=== PATIENT | female | born 1965 | race Caucasian/White ===

== ENCOUNTER 2018-08-30 07:33 | Emergency (ER) | payer OTHER ==
[2018-08-30] MEDS ORDERED: NS 1,000 ML IV ONE ×2 (08:01→08:07)
[2018-08-30] MEDS ORDERED: PROPOFOL 200 MG/20 ML VIAL IVP ONE (08:06)
[2018-08-30 08:15] LABS: PLATELET COUNT 210 10^3/uL (150-400)
[2018-08-30] MEDS ORDERED: ONDANSETRON DISINTEGRATING 4 MG TAB PO PRN (08:48)
[2018-08-30] MEDS ORDERED: ONDANSETRON 4 MG/2 ML VIAL IVP PRN (08:48)
[2018-08-30] MEDS ORDERED: ACETAMINOPHEN 325 MG TAB PO PRN (08:48)
--- NOTE | 2018-08-30 08:58 | PDGENHP ---
History and Physical - Chief Complaint rapid hr, dizzy - History of Present Illness 52 yo active female with no past medical history presents to ED via EMS after she developed rapid HR during a spin class. She was doing intervals and began to feel nauseous and lightheaded. She felt palpitations and was lightheaded. She had no associated CP or SOB. She left the class and sat down against a wall. Her symptoms did not fransisca. EMS was called and she was found to be in presumed v tac. She was brought to the ED and received 2 shocks, ultimately converting to sinus rhythm. Currently she has a HR of 60 in sinus rhythm. She is a non-smoker. No h/o DM, htn or hyperlipidemia. No family h/o CAD. She notes poor sleep and increased stress recently. She generally exercises at a high level. She has never had this happen before, but does note her HR was excessively elevated during a skate ski session recently. She is currently CP free and feels fine. Cardiology has consulted in the ED and she will be admitted for further evaluation. History Information - Allergies/Home Medication List Allergies/Adverse Reactions: No Known Allergies Allergy (Verified 08/30/18 08:31) Home Medications: Ibuprofen [Motrin (*)] 200 mg PO DAILY PRN 08/30/18 [Last Taken Unknown] I have personally reviewed and updated: family history, medical history, social history, surgical history - Past Medical History no pertinent PMH - Surgical History Reports: no pertinent surgical hx - Family History Positive for: non-pertinent - Social History Smoking Status: Never smoked Alcohol Use: Rarely Drug Use: None Additional social history: , at bedside. Review of Systems Review of Systems: ROS: 10pt was reviewed & negative except for what was stated in HPI & below Physical Exam Physical Exam: Temp Pulse Resp BP Pulse Ox 60 16 95/69 L 100 08/30/18 08:12 08/30/18 08:12 08/30/18 08:12 08/30/18 08:12 Constitutional: no apparent distress Eyes: PERRL Ears, Nose, Mouth, Throat: moist mucous membranes Cardiovascular: regular rate and rhythym, no murmur, rub, or gallop Respiratory: no respiratory distress, clear to auscultation Gastrointestinal: normoactive bowel sounds, soft, non-tender abdomen Skin: warm Musculoskeletal: full muscle strength Neurologic: AAOx3 Psychiatric: interacting appropriately Lab Data & Imaging Review 08/30/18 07:50 08/30/18 07:50 WBC 6.25 10^3/uL (3.80-9.50) 08/30/18 07:50 RBC 5.22 10^6/uL (4.18-5.33) 08/30/18 07:50 Hgb 16.1 g/dL (12.6-16.3) 08/30/18 07:50 Hct 50.0 % (38.0-47.0) H 08/30/18 07:50 MCV 95.8 fL (81.5-99.8) 08/30/18 07:50 MCH 30.8 pg (27.9-34.1) 08/30/18 07:50 MCHC 32.2 g/dL (32.4-36.7) L 08/30/18 07:50 RDW 12.2 % (11.5-15.2) 08/30/18 07:50 Plt Count 210 10^3/uL (150-400) 08/30/18 07:50 MPV 12.2 fL (8.7-11.7) H 08/30/18 07:50 Neut % (Auto) 49.1 % (39.3-74.2) 08/30/18 07:50 Lymph % (Auto) 38.2 % (15.0-45.0) 08/30/18 07:50 [place] % (Auto) 7.0 % (4.5-13.0) 08/30/18 07:50 Eos % (Auto) 4.5 % (0.6-7.6) 08/30/18 07:50 Baso % (Auto) 1.0 % (0.3-1.7) 08/30/18 07:50 Nucleat RBC Rel Count 0.0 % (0.0-0.2) 08/30/18 07:50 Absolute Neuts (auto) 3.07 10^3/uL (1.70-6.50) 08/30/18 07:50 Absolute Lymphs (auto) 2.39 10^3/uL (1.00-3.00) 08/30/18 07:50 Absolute Monos (auto) 0.44 10^3/uL (0.30-0.80) 08/30/18 07:50 Absolute Eos (auto) 0.28 10^3/uL (0.03-0.40) 08/30/18 07:50 Absolute Basos (auto) 0.06 10^3/uL (0.02-0.10) 08/30/18 07:50 Absolute Nucleated RBC 0.00 10^3/uL (0-0.01) 08/30/18 07:50 Immature Gran % 0.2 % (0.0-1.1) 08/30/18 07:50 Immature Gran # 0.01 10^3/uL (0.00-0.10) 08/30/18 07:50 Sodium 138 mEq/L (135-145) 08/30/18 07:50 Potassium 4.8 mEq/L (3.5-5.2) 08/30/18 07:50 Chloride 104 mEq/L (97-110) 08/30/18 07:50 Carbon Dioxide 22 mEq/l (22-31) 08/30/18 07:50 Anion Gap 12 mEq/L (6-14) 08/30/18 07:50 BUN 18 mg/dL (7-23) 08/30/18 07:50 Creatinine 1.1 mg/dL (0.6-1.0) H 08/30/18 07:50 Estimated GFR 53 08/30/18 07:50 Glucose 209 mg/dL (70-100) H 08/30/18 07:50 Calcium 9.5 mg/dL (8.5-10.4) 08/30/18 07:50 Magnesium 1.6 mg/dL (1.6-2.3) 08/30/18 07:50 POC Troponin I 0.00 ng/mL (0.00-0.08) 08/30/18 07:59 Visualized and Interpreted Chest x-ray results: Yes Chest X-Ray results: no infiltrate Visualized and Interpreted EKG results: Yes EKG additional interpertation: V tac vs SVT with aberrancy on initial EKG. 2nd EKG shows NSR without ischemic changes Assessment & Plan Assessment: V tac vs SVT - Presenting rate was 260, S/P shock x2, now in NSR. Trop negative. Current EKG is non-ischemic. -Echo now -admit to SDU, telemetry monitoring -check TSH -keep Mag >2 (replace now for initial level 1.6) -keep K >4 (currently 4.8) -cardiology consulting, likely needs EP study, discussed with Dr. Healy Hyperglycemia - suspect stress induced, no h/o diabetes DU - Cr 1.1, suspect hypoperfusion with VT, s/p 1 L NS in ED -recheck in am Full code Dispo - obs
[2018-08-30] MEDS ORDERED: MAGNESIUM SULF 2 GM/WATER 50 ML IV ONE (09:03)
[2018-08-30] MEDS ORDERED: PROTOCOL MAGNESIUM 1 DOSE IV PRN (09:06)
[2018-08-30] MEDS ORDERED: NS 1,000 ML IV SCH (09:15)
--- NOTE | 2018-08-30 10:36 | ECHO ---
[email or web address] [address] [address] Main: [phone] Fax: Transthoracic Echocardiogram Name: REE BE MR#: [id number] Study Date: 08/30/2018 Study Time: 09:38 AM Date of : 1965 Age: 52 year(s) Height: 162.6 cm (64 in.) Weight: 58.97 kg (130 lb.) BSA: 1.63 m2 Gender: Female Examination: Echo Indication: v tac vs svt Image Quality: Adequate Contrast: Requested by: Modesta Albert BP: 118 mmHg/68 mmHg Heart Rate: Rhythm: Indication: v tac vs svt Procedure Staff Power Line Installer And Repairer: Kristi Ray RDCS Reading Physician: Chauncey Healy MD Requesting Provider: Conclusions: Normal size left ventricle. Normal global systolic LV function. EF is 63 %. Mildly dilated right ventricle. The mitral valve is normal in appearance and function. Trivial mitral valve regurgitation. Moderate aortic valve regurgitation is present. No aortic valve stenosis is present. The aortic valve is not well seen but appears trileaflet.. Right ventricular systolic pressure measures 19mmHg. Normal size ascending aorta measuring 3.4 cm. Trivial pericardial effusion. No old studies for comparison. Measurements: Chambers Valvular Assessment AV/MV Valvular Assessment TV/PV Normal Normal Normal Name Value Range Name Value Range Name Value Range Ao Angy (2D): 3.0 cm (1.4 cm-2.6 AV Vmax: 1.46 m/s (1 m/s-1.7 TR Vmax: 1.90 mm/s ( - ) cm) m/s) TR PGmax: 14 mmHg ( - ) IVSd (2D): 0.8 cm (0.6 cm-1.1 AV maxP mmHg ( - ) syst. PAP: 19 mmHg ( - ) cm) AV meanP mmHg ( - ) PV Vmax: 0.69 m/s (0.6 m/s-0.9 LVDd (2D): 4.4 cm (3.9 cm-5.3 LVOT Vmax: 1.11 m/s (0.7 m/s-1.1 m/s) cm) m/s) PV PGmax: 2 mmHg ( - ) LVDs (2D): 3.0 cm (2.1 cm-4 JUAQUIN (Vmax): 1.5 cm2 ( - ) cm) JUAQUIN (VTI): 1.6 cm ( - ) LVPWd (2D): 0.9 cm ( - ) AR (PHT): 476 ms ( - ) LVOTd 1.6 cm 1.6 cm mm MV E Vmax: 0.62 m/s ( - ) LVEF (BP): 63 % (>=55 %) MV A Vmax: 0.63 m/s ( - ) MV E/A: 0.98 ( - ) Patient: REE BE Study Date: 08/30/2018 Page 1 of 2 09:38 AM RVDd(2D): 3.2 cm (1.9 cm-3.8 MV PHT: 0.052 s ( - ) cmmm) MVA (PHT): 4.2 s ( - ) Continued Measurements: Chambers Valvular Assessment AV/MV Valvular Assessment TV/PV Name Value Name Value Name Value LADs: 3.2 cm MV DecTime: 194 m/s CVP (est.): 5 mmHg LADs Lon.5 cm MV E/E' Septal: 10.20 LA Area: 18.2 cm2 MV E/E' Lateral: 10.20 LA Volume: 43 ml AR Vmax: 4.09 cm/s LA Volume Index: 26.4 ml/m2 RA Area: 18.1 cm2 Additional Vessels Name Value Ao Ascendin.4 cm Inferior Vena Cava: 2.2 cm Findings: Left Ventricle: Normal size left ventricle. No LV hypertrophy. Normal global systolic LV function. EF is 63 %. No regional wall motion abnormality. Normal diastolic LV function. Right Ventricle: Mildly dilated right ventricle. Normal RV function. Left Atrium: The left atrium is normal in size. Right Atrium: The right atrium is normal in size. Mitral Valve: The mitral valve is normal in appearance and function. Trivial mitral valve regurgitation. No mitral stenosis is present. Aortic Valve: Moderate aortic valve regurgitation is present. No aortic valve stenosis is present. The aortic valve is not well seen but appears trileaflet.. Tricuspid Valve: The tricuspid valve is normal in appearance and function. Trivial to mild tricuspid valve regurgitation. The pulmonary artery pressure is normal. Right ventricular systolic pressure measures 19mmHg. Pulmonic Valve: The pulmonic valve is normal in appearance and function. Trivial pulmonic valve regurgitation. Aorta: The aorta is normal. Normal size aortic root measuring 3.0 cm. Normal size ascending aorta measuring 3.4 cm. IVC: The IVC is normal sized. Pericardium: No pleural effusion. Trivial pericardial effusion. (No Signature Object) Patient: REE BE Study Date: 08/30/2018 Page 2 of 2 09:38 AM [id number]
--- NOTE | 2018-08-30 10:43 | EDPHY ---
H & P Stated Complaint: Vtach Time Seen by Provider: 08/30/18 07:43 HPI/ROS: CHIEF COMPLAINT: Rapid heart rate. HISTORY OF PRESENT ILLNESS: Ms. Yeung is a 52-year-old female in good health who arrives by ambulance after developing rapid heart rate during a spin class in the gym. She exercises regularly and vigorously. This morning she was doing intervals during the class and noted that her heart rate seemed higher than expected. She felt somewhat lightheaded and mildly short of breath. She stopped exercising and sat outside the class to rest. She was wearing a heart rate monitor and noted that her heart rate was 130 on the monitor. She rested almost half an hour without a decline in her heart rate. She continued feeling somewhat lightheaded, sick to her stomach, and mildly short of breath. Employees at the gym called the paramedics. Paramedics found her to be in ventricular tachycardia with heart rate around 250. She was transported to the emergency department. She has no personal history of heart disease and no family history of heart disease. There is no family history of sudden . She does not take stimulants medications, does not use illicit drugs; she drank 1/2 of a caffeinated [employer] this morning. She ate a banana with almond butter prior to exercising. She ate some dark chocolate last night. She does report an increase in stress and insomnia recently. REVIEW OF SYSTEMS: A ten system review of systems was performed and is negative with the exception of the items mentioned in the HPI. Past medical history: None. Past surgical history: Ankle surgery, . Family history: Negative for cardiac disease, sudden . Social history: with a fifteen year old son. Works as personal organizer, self-employed. No tobacco use. No illicits. General Appearance: Alert. Vital signs reviewed. BP 120s systolic en route. Eyes: Pupils equal and round, no conjunctival injection, no discharge. Anicteric. ENT, Mouth: Mucous membranes are moist, no oropharyngeal erythema or edema. Neck: No lymphadenopathy, supple. Trachea midline. Respiratory: Lungs are clear to auscultation; no wheezes, rales, or rhonchi. Cardiovascular: Tachycardic. Gastrointestinal: Abdomen is soft and nontender, no masses or organomegaly, bowel sounds normal. Skin: Warm and dry, no rashes on exposed skin, normal color. Back: Nontender to palpation over the thoracolumbar spine. No CVAT. Extremities: No lower extremity edema, no calf tenderness or swelling. Neurological: Alert and oriented. Moving all four extremities easily and equally. Facial expressions symmetric. Psychiatric: Normal affect. No agitation. - Personal History LMP (Females 10-55): Unknown Current Tetanus Diphtheria and Acellular Pertussis (TDAP): Yes - Medical/Surgical History Hx Asthma: No Hx Chronic Respiratory Disease: No Hx Diabetes: No Hx Cardiac Disease: No Hx Renal Disease: No Hx Cirrhosis: No Hx Alcoholism: No Hx HIV/AIDS: No Hx Splenectomy or Spleen Trauma: No - Social History Smoking Status: Never smoked Constitutional: Initial Vital Signs Heart Rate 259 H 08/30/18 07:54 Respiratory Rate 16 08/30/18 07:54 Blood Pressure 103/67 08/30/18 07:54 O2 Sat (%) 93 08/30/18 07:54 O2 Delivery Mode Nasal Cannula O2 (L/minute) 3 Allergies/Adverse Reactions: No Known Allergies Allergy (Verified 08/30/18 08:31) Home Medications: Medication Instructions Recorded Ibuprofen [Motrin (*)] 200 mg PO DAILY PRN 08/30/18 Medical Decision Making - Diagnostics EKG Interpretation: 12 lead EKG is interpreted in [place] by emergency department physician. Her initial EKG showed a heart rate in the 250s and was consistent with ventricular tachycardia. In review of this EKG with the installation engineer on duty possibility of this being an SVT with aberrancy was also discussed. 2nd EKG status post DC cardioversion shows a sinus rhythm with some ST segment depression. Procedures: Cardioversion. 52-year-old female who arrived with an EKG indicative of ventricular tachycardia , heart rate in the 250s. I explained procedural sedation with propofol and the procedure of DC cardioversion to the patient and her . She understands the risk of both sedation and cardioversion. I recommended cardioversion in this setting of ventricular tachycardia, given that there is the risk of deterioration to a malignant rhythm. She agrees to undergo sedation with propofol and cardioversion. A pre-sedation evaluation was completed on the patient shortly after arrival in the department. Patient is an appropriate candidate for procedural sedation. Mallampati class is 1. She has no underlying illnesses. The risks of the sedation were discussed with the patient. A time out was completed. The patient was sedated with 100 mg IV for propofol. The patient was monitored with continuous pulse oximetry, capnography, and performance improvement coordinator. There were no complications and no significant hypoxemia. I remained at the bedside for the sedation. The total time I spent in the procedural sedation was 5 min. She underwent DC cardioversion with 200 joules but continued with tachycardia consistent with ventricular tachycardia. A 2nd 200 joules was administered with return of sinus rhythm. ED Course/Re-evaluation: Patient arrived in ventricular tachycardia with a rate in the 250s. By her report, she had been experiencing a rapid heart rate for close to an hour at that point. I felt that cardioversion was the best approach rather than trying pharmaceutical intervention. She underwent procedural sedation with propofol and DC cardioversion. She converted to sinus rhythm with a rate in the 60s after the 2nd shock. She tolerated procedural sedation and cardioversion well. Dr. Healy, cardiology, came to the emergency department to evaluate the patient. Bedside echocardiogram was performed and reported by the cardiology service. Please see formal echocardiogram report. It was recommended that she undergo CT angiogram to assess for pulmonary embolus and aortic dissection. This study was performed and reported to me by the radiologist on duty. No evidence of either PE or dissection. She was noted to have cardiomegaly on this study. Arrangements were made for her to be evaluated by a Dr. Wooten, electrophysiology. Arrangements were made for her to be admitted to the hospital by the hospitalist service. However, when I consulted [facility] (she carries [employer] insurance) and spoke with their physician on duty I was told that she would not be approved for admission to [facility]. At the time of this discussion with the [facility] physician the patient was stable with stable blood pressure and a sinus rhythm. She was awake and alert. It was felt that she was safe for ambulance transfer. Arrangements were made by [facility] for her to be admitted to [facility]. Transportation was also arranged via ambulance by [facility]. Patient was serially examined throughout her stay in the emergency department. She remained stable following cardioversion. Initial troponin was negative. Labs reviewed. Her creatinine was slightly elevated at 1.1. She received 1 L of IV normal saline in the department. She was also noted to have elevated glucose. All radiographic studies including echocardiogram and CT angiogram reports were sent with the patient. Differential Diagnosis: I considered a differential diagnosis of tachycardia that includes but is not limited to myocardial ischemia, electrolyte disorder, hypovolemia, PE, and endocrine disorder. Critical Care Time: I spent a total of 40 minutes of critical care time in obtaining history, performing a physical exam, bedside monitoring of interventions, collecting and interpreting tests and discussion with consultants but not including time spent performing procedures. Critical care time is exclusive of procedures performed. She was at risk of malignant cardiac arrhythmia and . - Data Points Laboratory Results: Laboratory Results 08/30/18 07:50 08/30/18 07:50 Medications Given: Discontinued Medications Sodium Chloride (Ns) 1,000 mls @ 0 mls/hr IV EDNOW ONE; Wide Open PRN Reason: Protocol Stop: 08/30/18 08:02 Last Admin: 08/30/18 08:06 Dose: 1,000 mls Sodium Chloride (Ns) 1,000 mls @ 0 mls/hr IV EDNOW ONE; Wide Open PRN Reason: Protocol Stop: 08/30/18 08:08 Last Admin: 08/30/18 08:08 Dose: 1,000 mls Magnesium Sulfate (Magnesium Sulf 2 Gm (Premix)) 50 mls @ 50 mls/hr IV ONCE ONE Stop: 08/30/18 10:02 Last Admin: 08/30/18 11:56 Dose: 50 mls Propofol (Diprivan) 100 mg IVP EDNOW ONE Stop: 08/30/18 08:07 Last Admin: 08/30/18 08:08 Dose: 100 mg Point of Care Test Results: Chemistry 08/30/18 07:59 POC Troponin I 0.00 ng/mL ng/mL (0.00-0.08) Departure - Departure Disposition: Acute Care Hospital [facility] Clinical Impression: Ventricular tachycardia Condition: Fair
[2018-08-30] MEDS ORDERED: IOPAMIDOL (ISOVUE 370) 75 ML BTL IV ONE (10:44)
[2018-08-30 11:48] VITALS: BP 122/66
--- NOTE | 2018-08-30 15:23 | GCON ---
DATE OF CONSULTATION: 08/30/2018 REFERRING PHYSICIAN: Dr. Villavicencio CHIEF COMPLAINT: We have been asked by Dr. Villavicencio to evaluate the patient with a wide-complex tachyc ardia. HISTORY OF PRESENT ILLNESS: The patient is a 52-year-old female with limited past medical history, w ho presented to the emergency department with a wide-complex tachycardia. She was treated with DC ca rdioversion x2 with mormon of normal sinus rhythm. We have been consulted to help in the furthe r management of this patient. The patient was in her usual state of health until the a.m. of admissi on when she went to a spin class. The patient reports she had to take a bicycle in the back of the oom and did not have time to warm up as she normally would. She participated in the spin class when she noted that her heart rate increased and remained elevated. The elevated heart rate was associate d with symptoms of nausea and presyncope but not chest pain. When her heart rate did not return to w ithin normal limits, EMS was called to further evaluate her condition. When EMS arrived, she was not ed to have a wide-complex tachycardia with a heart rate of 256 beats per minute. The patient's vital s were stable. However, she did report symptoms of lightheadedness and nausea. She was brought to [facility] emergency department where she was treated with DC cardioversion and mormon of normal sinus r hythm. The patient denies a previous cardiac history. The patient remains active, participating in spin class at least 2 times a week and recently started skate skiing. While skate skiing, patient whitney s noted symptoms of dyspnea, as well as an elevated heart rate much higher than what she would expect for her level of activity. There is no history of hypertension, hyperlipidemia, tobacco use, or [facility] history of early onset of coronary artery disease. PAST MEDICAL HISTORY: None. MEDICATIONS: None. ALLERGIES: No known drug allergies. SOCIAL HISTORY: The patient works as an organizer. She is . She does not smoke and denies d rug use. FAMILY HISTORY: Noncontributory. REVIEW OF SYSTEMS: 10-point review of systems is negative except as noted in HPI. PHYSICAL EXAMINATION: GENERAL: The patient is resting comfortably in bed. She does not appear to b e in acute distress. VITALS: Temperature is afebrile. Pulse is 60, blood pressure is 95/69, respir atory rate is 16, SaO2 is 100% on 3 L nasal cannula. HEENT: Normocephalic, atraumatic. Extraocular muscles intact. NECK: No JVD. No bruits. LUNGS: Clear to auscultation bilaterally. CARDIOVASCU LAR: Regular rate and rhythm. S1, S2. No murmurs, rubs, or gallops appreciated. ABDOMEN: Soft, n ontender with normoactive bowel sounds. No hepatosplenomegaly noted. EXTREMITIES: No clubbing, cya nosis, or edema. SKIN: No evidence of rash. NEURO: Patient is awake, alert, and oriented x3. LABORATORY: White blood cell count is 6.25, hemoglobin 16.1, hematocrit is 50.0, platelet count is 2 10. Sodium is 138, potassium is 4.8, chloride is 104, CO2 is 22, BUN is 18, creatinine is 1.1. EKG on admission demonstrated a wide-complex tachycardia at approximately 256 beats per minute. It w as a right bundle branch block pattern with superior axis in lead V1. Two of the QRS complexes appea red to be potential fusion beats, raising concern for ventricular tachycardia. However, SVT with valerie rrancy is possible. ASSESSMENT AND PLAN: The patient is a 52-year-old female with limited past medical history, who pres ents with a wide-complex tachycardia during a spin class. She was cardioverted back to a normal sinu s rhythm with 2 shocks. We will plan on obtaining an echocardiogram to look for structural heart dis ease. Will also have Dr. Wooten of the electrophysiology service evaluate patient for electrophysiology study to further clarify this rhythm. /[id number]/MODL
--- NOTE | 2018-08-30 16:02 | CPEKG ---
Test Reason : OPEN Blood Pressure : / mmHG Vent. Rate : 256 BPM Atrial Rate : 000 BPM P-R Int : 098 ms QRS Dur : 109 ms QT Int : 000 ms P-R-T Axes : 103 -81 000 degrees QTc Int : 000 ms Supraventricular tachycardia Consider RVH or PMI w/ secondary repol abnrm LVH with secondary repolarization abnormality Inferior infarct, old Confirmed by Polly Millan ([id number]) on 08/30/2018 4:02:13 PM Referred By: POLLY MILLAN Confirmed By:Polly Millan
--- NOTE | 2018-08-30 16:03 | CPEKG ---
Test Reason : OPEN Blood Pressure : / mmHG Vent. Rate : 063 BPM Atrial Rate : 065 BPM P-R Int : 153 ms QRS Dur : 087 ms QT Int : 354 ms P-R-T Axes : 076 -29 -33 degrees QTc Int : 363 ms Sinus rhythm Low voltage, extremity leads Consider right ventricular hypertrophy Nonspecific T abnormalities, inferior leads Confirmed by Yesi Villavicencio ([id number]) on 08/30/2018 4:02:43 PM Referred By: Yesi Villavicencio Confirmed By:Yesi Villavicencio
== END 2018-08-30 12:13 | disposition short-term general hospital (02) ==
LOC: EDUNIT# → UNDOADMOB 08:20
PROC: 5A2204Z Restoration of Cardiac Rhythm, Single (ICD-10-PCS; principal; 2018-08-30)
DX: I47.2 Ventricular tachycardia (principal); E86.9 Volume depletion, unspecified
CPT/HCPCS: 84484-ER; 96365; J3475; Q9967